=== PATIENT | female | born 1970 | race Caucasian/White ===

== ENCOUNTER → 2018-04-20 | Outpatient (CLI) | payer OTHER | LOC: M.RAD 12:11 | DX: M77.32 Calcaneal spur, left foot (principal) ==

== ENCOUNTER 2020-02-29 13:26 | Observation (INO) | payer OTHER ==
[~2020-02-29] VITALS: Ht 157.5 cm; Wt 72.6 kg
--- NOTE | ~2020-02-29 | OP ---
[address] [address] OPERATIVE REPORT Name: NOEL BETTS Room: [address] M.RStanislaw#: [id number] Admission: 02/29/20 Attend Phys: Geremias Garcia MD Discharge: Date of : 66 Report #: [id number] THIS REPORT FOR: //name// cc: [facility] - Clinic physician unknown [facility] - Clinic physician unknown ~ THIS REPORT FOR: //name// CC: Geremias Garcia [facility] unknown [facility] DICTATED BY: Cedric Lacy DO DATE OF SERVICE: 02/29/2020 TIME OF SURGERY: 1730. SURGEON: Don Barlow DO ASSISTANTS: Cedric Lacy DO and Елена Dunn DO. PREOPERATIVE DIAGNOSIS: rail washer injection injury to the dorsum of the left hand. POSTOPERATIVE DIAGNOSES: rail washer injection injury to the dorsum of the left hand with traumatic laceration of the extensor tendon of the ring finger of the left hand. OPERATION PERFORMED: Irrigation and debridement of washery boss injection injury to the dorsum of the left hand with primary extensor tendon repair of the ring finger of the left hand. 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 On physical exam, she was noted to have significant crepitus all throughout the dorsum of the left hand and the dorsal aspect of the left wrist. While there were no solvents or solutions mixed with water, there were some chemicals that had previously been sprayed on the racks that she was holding and the crepitus in the hand cause for concern that there could potentially be an infectious process to set up in this hand. Prior to proceeding to the OR, discussed the risks, benefits and indications for this procedure and that multiple procedures might be required. The patient and spouse with her consented for going to the OR today. Risks for this procedure include bleeding, infection, increased pain, decreased functional [place] [address] OPERATIVE REPORT Name: NOEL BETTS Room: [address]#: [id number] Admission: 02/29/20 Attend Phys: Geremias Garcia MD Discharge: Date of : 66 Report #: [id number] extremity, need for repeat procedure, need for prolonged IV antibiotics, numbness, tingling of the left upper extremity, potential for deep vein thrombosis, pulmonary embolism, myocardial arrhythmia, myocardial infarction, even as well as any and all risks associated with general anesthesia. Again, the patient's with her consented to proceeding to the OR. Prior to the procedure, timeout was performed verifying patient's name, date of , medical record number, surgical site. This was all confirmed by Anesthesia, nurses in the room, surgeons and surgical assistants. PREOPERATIVE ANTIBIOTICS: IV 2 grams of Ancef were given. DESCRIPTION OF PROCEDURE: The patient's left upper extremity was cleaned and prepped with a Betadine scrub and draped in a standard sterile fashion. A tourniquet at 250 mmHg was placed over the upper left arm and inflated prior to the procedure beginning. The area of the dorsal left hand laceration was identified and an incision was carried out to incorporate this 0.5-1 cm traumatic laceration directly over the fourth metacarpal, running from proximal radial to distal ulnar in orientation. The incision was made approximately 5 cm incorporating this wound. The subcutaneous tissue was spread with scissors and debrided down to the level of the extensor tendons which at this time, exposed the traumatically lacerated ring finger extensor tendon of the left upper extremity. The entire dorsum of the hand was able to be explored through this wound incision. There were no other lacerations to soft tissue structures that could be viewed. There was no gross debris in this wound. The area was then cleansed with 3 liters of sterile saline on gravity flow through cysto tubing. Following this, the crepitus of the subcutaneous tissues was noted to be gone. The ring finger extensor tendon was then repaired primarily with a [id number] locking suture and a superficial flap suture using 3-0 nylon. It was verified to remain intact while passive range of motion was performed on the ring finger without any significant gapping between the two repaired ends. The subcutaneous and superficial tissue was then brought together using simple interrupted 3-0 nylon sutures. A rubber band thin drain was placed, exiting proximally and ulnarly to the surgical wound. It was confirmed to not be sewed into the subcutaneous tissue. There were no specimens were removed. There were no implants. Blood loss approximately 50 mL. No blood products were given. Total fluids and urine output, not recorded. ANESTHESIA: General with anesthesiologist. ATTESTATION: I attest that surgeon, Dr. Don Barlow, was present in the operative suite for all critical parts of this procedure. [address] [address] OPERATIVE REPORT Name: JAYDEN BETTSMIRIAM Dodd Room: [address]#: [id number] Admission: 02/29/20 Attend Phys: Geremias Garcia MD Discharge: Date of : 66 Report #: [id number] DISPOSITION: The patient was transferred off the operative table after extubation and transported to the PACU in a stable condition. By: 1853 1924Robert Marlyn Barlow DO /iesha
[2020-02-29 13:33] VITALS: BP 110/42
[2020-02-29 15:59] LABS: HEMATOCRIT 41.1 % (37.0-47.0); HEMOGLOBIN 14.6 gm/dL (12.0-15.0); MCH 33.2 pg (26.0-34.0); MCHC 35.5 g/dL (28.0-37.0); MCV 93.5 fL (80.0-100.0); MPV 10.4 fl. (7.2-11.1); NUCLEATED RBCS 0 /100WBC; PLATELET COUNT* 180 thou/uL (150-400); RDW-CV 12.5 % (10.5-14.5); WBC 9.8 thou/uL (4.0-11.0)
[2020-02-29 16:09] LABS: APTT 26.6 Seconds (25.0-31.3); CALCIUM 9.1 mg/dL (8.5-10.1); CREATININE 1.2 mg/dL (0.6-1.3); POTASSIUM 3.5 mmol/L (3.5-5.1); PROTIME 10.4 Seconds (9.20-11.50)
[2020-02-29 16:22] VITALS: BP 127/70
[2020-02-29 16:32] LABS: ABSOLUTE LYMPHOCYTES 1.2 thou/uL (0.8-5.3); ABSOLUTE MONOCYTES 0.2 thou/uL (0.0-1.2); ABSOLUTE NEUTROPHILS 8.4 thou/uL (1.6-8.1); PLATELET ESTIMATE ADEQUATE
[2020-02-29 20:00] VITALS: BP 123/65
[2020-02-29 22:00] VITALS: BP 128/60
[2020-03-01] VITALS: BP 107/55
[2020-03-01 04:00] VITALS: BP 116/58
--- NOTE | 2020-03-01 05:37 | NUR ---
PATIENT ARRIVED ON FLOOR FROM PACU AT ABOUT 1999. PATIENT ADMISSION HISTORY AND ASSESSMENT WAS COMPLETED CHARTED. IV FLUIDS WERE STARTED ORDERED. PATIENT HAS SPLINT TO LEFT HAND. PATIENT WAS GIVEN NAUSEA MEDICINE ONCE. PATIENT HR HAS BEEN SLIME IN THE 40'S TO 50'S AT REST. PATIENT SHOULD DC HOME TODAY. WILL CONTINUE TO MONITOR.
[2020-03-01 07:50] VITALS: BP 101/50
--- NOTE | 2020-03-01 10:53 | EKG ---
[place] [address] ELECTROCARDIOGRAM REPORT Name: ROXANENOEL Dodd Room: [address]#: [id number] Admission: 02/29/20 Attend Phys: Geremias Garcia, Discharge: Date of : 66 Date of Service: 03/01/20 0651 Report #: [id number] THIS REPORT FOR: //name// [facility] Test Date: 2020-03-01 Test Time: 06:51:10 Pat Name: NOEL BETTS Department: Room: [address] Gender: F Detective Chief: SLJ : 1970 Requested By: Geremias Garcia Order Number: [id number] Geovanna MD: Curly French Measurements Intervals Turner Rate: 45 P: 43 OK: 161 QRS: 28 QRSD: 136 T: 22 QT: 518 QTc: 449 Interpretive Statements Sinus bradycardia Left bundle branch block No previous ECG available for comparison Electronically Signed On 03-01-2020 10:53:28 CDT by Curly French [email or web address] <ELECTRONICALLY SIGNED> By: Curly French MD, [facility] 03/01/20 1053 0651 [id number] Curly French MD, [facility] /EPI
[2020-03-01] MEDS ORDERED: TRAMADOL 50 MG50 MG PO (12:08)
[2020-03-01 12:19] VITALS: BP 101/50
[2020-03-01] MEDS ORDERED: KEFLEX500 M1 PO (12:49)
--- NOTE | 2020-03-01 14:37 | NUR ---
PATIENT HR IN THE 40'S-50'S THIS SHIFT. DR. MATUTE AWARE AND CARDIOGLY CONSULT WAS PLACED. DR. GRAHAM SAW PATIENT THIS AFTERNOON AND OK TO DC HOME, PATIENT TO FOLLOW UP IN 1 MONTH. IVF AND SCHED ABX GIVEN ORDERED. DRESSING TO LEFT ARM D/I. FINGERS MOBILE AND GOOD CAP REFILL NOTED. PER ORTHO AND DR. MATUTE OK TO DISCHARGE. PATIENT VERBALIZES UNDERSTANDING OF PAPEWORK AND SCRIPT. PATIENT TAKEN OUT VIA WHEELCHAIR WITH ALL BELONGINGS.
--- NOTE | 2020-03-02 14:32 | CON ---
[address] [address] CONSULTATION Name: ROXANENOEL Yousif Room: [address] John [place]#: [id number] Admission: 02/29/20 Attend Phys: Geremias Garcia MD Discharge: 03/01/20 Date of : 66 Report #: [id number] THIS REPORT FOR: //name// cc: [facility] - [facility] physician unknown [facility] - [facility] physician unknown ~ THIS REPORT FOR: //name// CC: Hudson Smith [facility] unknown [facility] DATE OF SERVICE: 03/01/2020 CARDIOLOGY CONSULTATION HISTORY OF PRESENT ILLNESS: The patient is a 50-year-old white female who I was asked to see in the hospital today after she is noted to be bradycardic. The history is obtained from the patient as well as her who is present. The patient states that she has had a long history of intermittent chest pain. She describes a tightness in his chest. It makes her short of breath and it goes into her back. It usually occurs after lifting. It also occurs at rest. She apparently went to the Emergency Room at in [place] with one episode of chest pain and was sent home. She was told that she had a heart block. She has never had a stress test. She denies exertional dyspnea and peripheral edema. She notes occasional irregular heartbeat. She has occasional lightheadedness. She does complain of having no energy. 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 She struck her left hand injuring it. She was brought here to [place] by her . She was taken to the operating room last night and had a tendon repair. She is scheduled to go home today. On the monitor, she was noted to be bradycardic. Cardiology consultation requested. She denies ever being told she had a slow heart rate. PAST MEDICAL HISTORY: She has had tonsillectomy, cholecystectomy, and ovarian surgery. She has been told in the past that her cholesterol was high. MEDICATIONS: She is currently on no medications. ALLERGIES: SHE HAS AN INTOLERANCE TO MORPHINE AND CODEINE. FAMILY HISTORY: Her mother had a pacemaker. SOCIAL HISTORY: She is . She and her live in [place], [place]. She works in [employer]. She smokes a pack of cigarettes a day. Rarely drinks alcohol[place] [address] CONSULTATION Name: NOEL BETTS Room: [address] John [place]#: [id number] Admission: 02/29/20 Attend Phys: Geremias Garcia MD Discharge: 03/01/20 Date of : 66 Report #: [id number] REVIEW OF SYSTEMS: No history of stroke. She does snore at night. No history of liver disease. She has had kidney stones. No cancer. No chronic skin condition. No psychiatric illness. PHYSICAL EXAMINATION: GENERAL: Middle-aged female, who appeared in no distress. VITAL SIGNS: She had a blood pressure of 100/60, pulse is 44. She is afebrile. HEENT: She was anicteric. Conjunctivae are pink. Mucous membranes moist. NECK: Veins nondistended. No carotid bruits. Neck supple. CHEST: Clear to auscultation. CARDIOVASCULAR: Regular bradycardia, grade 2 systolic ejection murmur. ABDOMEN: Soft. EXTREMITIES: Had no edema. Dorsalis pedis pulses 2+ bilaterally. SKIN: Warm and dry. NEUROLOGIC: Nonfocal. LYMPH: No adenopathy. MUSCULOSKELETAL: No joint effusion. IMAGING: ECG this morning shows sinus bradycardia at 45 beats per minute with a left bundle branch block. LABORATORY DATA: She had lab work that included sodium 145 and creatinine 1.2. White blood cell count 9.8 and hemoglobin 14.6. IMPRESSION AND RECOMMENDATIONS: 1. Left bundle branch block. Asymptomatic. 2. Sinus bradycardia. If symptomatic, she would require pacemaker. I would check thyroid function studies. 3. Tobacco abuse. Recommend she stop smoking. 4. Snoring at night. I would rule out sleep apnea. 5. Trauma to her left hand. The patient did require surgery with repair of a tendon. 6. Chest pain. Atypical for angina. Suspect noncardiac. <ELECTRONICALLY SIGNED> By: Curly French MD, FACC 03/02/20 1432 1303 [id number] French MD, FAC /nt
== END 2020-03-01 14:43 | disposition home or self-care (01) ==
LOC: M.SUR 13:26 → M.ERS 13:26 → M.TBA-ER 15:45 → M.ORTHSURG 20:13
PROVIDERS: Nurse Practitioner Family; ADMIT Internal Medicine; ATTEND Internal Medicine
DX: S61.215A Laceration without foreign body of left ring finger without damage to nail, initial encounter (principal); I10 Essential (primary) hypertension; E66.9 Obesity, unspecified; R00.1 Bradycardia, unspecified; Z23 Encounter for immunization; X58.XXXA Exposure to other specified factors, initial encounter; Y93.89 Activity, other specified; Y92.89 Other specified places as the place of occurrence of the external cause; Y99.8 Other external cause status

== ENCOUNTER → 2020-11-13 | Outpatient (CLI) | payer OTHER ==
[2020-11-13] VITALS (20 sets, daily range): BP systolic 119–174; BP diastolic 70–95
[~2020-11-13] MED LIST: KEFLEX500 M1 PO; TRAMADOL 50 MG50 MG PO
--- NOTE | 2020-11-14 09:55 | PROC ---
[address] [address] PROCEDURE REPORT Name: NOEL BETTS Room: [facility]#: [id number] Admission: 11/13/20 Attend Phys: Curly French MD, F Discharge: Date of : 66 Report #: [id number] THIS REPORT FOR: cc: [facility] Castro Ahmad W. DO ~ Blick, David R. MD [facility] DATE OF SERVICE: 11/13/2020 TILT-TABLE TEST TITLE OF PROCEDURE: Head upright tilt-table testing using sublingual nitroglycerin. INDICATIONS: Syncope. PROCEDURE: Head upright tilt-table testing was performed with the patient in the fasting state. The patient was placed in the supine position. The initial blood pressure was 162/77 with a heart rate of 68. The patient was in sinus rhythm. ECG monitoring was performed throughout the procedure. Ten minutes after placing the patient on the tilt table at 70 degrees upright position, the blood pressure 162/82, pulse 64 and was in sinus rhythm. The patient had no complaints. After 20 minutes in this position, the patient was given nitroglycerin 0.4 mg sublingually. At that time, the blood pressure was 148/90 with a pulse of 66. The patient after 5 minutes of nitroglycerin complained of dizziness. However, there is no significant change in blood pressure or heart rate. At the end of the procedure, the patient had heart rate of 60, blood pressure was 128/74 and she was in a sinus rhythm. The patient experienced no syncope during the test. IMPRESSION: 1. Negative tilt-table testing for neurocardiogenic syncope. 2. There was neither a cardioinhibitory nor vasodepressor response to head upright tilt-table testing with nitroglycerin. <ELECTRONICALLY SIGNED> By: Curly French MD, FACC 11/14/20 0955 1557 1956Daheidi French MD, FACC /nt
== END | disposition home or self-care (01) ==
LOC: M.CL 11:24
PROVIDERS: ATTEND Internal Medicine Cardiovascular Disease
DX: R55 Syncope and collapse (principal); Z98.890 Other specified postprocedural states; Z79.899 Other long term (current) drug therapy; Z88.8 Allergy status to other drugs, medicaments and biological substances